=== PATIENT | male | born 1970 | race Caucasian/White ===

== ENCOUNTER → 2021-05-28 07:21 | Outpatient (CLI) | payer OTHER, SELFPAY ==
--- NOTE | 2021-05-28 | DI.MRI.S_ITS ---
PROCEDURE: MR SHOULDER RT WO CON INDICATIONS: Unspecified rotator cuff tear or rupture TECHNIQUE: Noncontrast oblique coronal T2 fast spin echo with fat saturation, oblique sagittal T1 spin echo and T2 fast spin echo with fat saturation, axial T1 spin echo and T2 fast spin echo with fat saturation through the shoulder. COMPARISON: None. FINDINGS: Rotator cuff: Supraspinatus tendinopathy and mild thickening. There is low-grade bursal surface fraying. Infraspinatus tendinopathy and mild thickening also with low-grade bursal surface fraying. The teres minor appears intact. Subscapularis tendon appears grossly intact. No definite atrophy of the rotator cuff muscles. There is mild fatty infiltration of the supraspinatus and infraspinatus Bones and bursae: No bone marrow contusions or fractures. Severe hypertrophic acromioclavicular joint degeneration. Acromion demonstrates conventional anatomy, without an os acromiale. Severe subacromial-subdeltoid bursitis. Capsule and soft tissues: Labrum: There is diffuse circumferential fraying, without definite intrasubstance signal intensity. There is amorphous hypertrophic appearance of the anterior labrum although unclear if this reflects background Bann[place] complex morphology (anatomic variant). The differential includes chronic anterior segment tear with subsequent hypertrophy and fibrosis. Given the relative absence of associated segmental changes in the glenoid, the former is favored. Mild glenohumeral joint degeneration with uniform partial-thickness chondral loss. Glenohumeral ligaments: Inferior and superior glenohumeral ligaments are intact. Biceps tendon: Intra-articular segment tendinopathy. No medial subluxation or complete rupture Rotator interval: Obliteration of the subcoracoid fat signal intensity. Coracohumeral ligament: Intact. IMPRESSION: Rotator cuff tendinopathy and low-grade bursal surface fraying as above. Of note, there is prominent lateral downsloping appearance of the acromion on the comparison radiographs dated 11/25/20. Severe subacromial-subdeltoid bursitis Diffuse circumferential labral fraying, likely chronic/degenerative. Dictated by: Prince Pereira M.D. on 05/28/2021 at 9:07 Approved by: Prince Pereira M.D. on 05/28/2021 at 9:14
== END ==
PROVIDERS: PCP Family Medicine; Referring Provider Orthopaedic Surgery; Visit Provider Orthopaedic Surgery
DX: M75.101 Unspecified rotator cuff tear or rupture of right shoulder, not specified as traumatic (principal); M19.011 Primary osteoarthritis, right shoulder; M75.51 Bursitis of right shoulder
CPT/HCPCS: 73221